=== PATIENT | male | born 1965 | race Two or more races ===

== ENCOUNTER → 2023-03-22 | Emergency (ER) | payer OTHER ==
[~2023-03-22] VITALS: Ht 170.2 cm; Wt 71.2 kg
[~2023-03-22] MED LIST: LEVOTHYROXINE25 MCG PO
== END | disposition home or self-care (01) ==
LOC: ER 14:32
DX: M79.644 Pain in right finger(s) (principal)

== ENCOUNTER 2023-04-03 12:47 | Outpatient (CLI) | payer OTHER | END 2023-04-03 12:52 | disposition home or self-care (01) | LOC: RAD 12:47 | PROVIDERS: ATTEND Orthopaedic Surgery | DX: S62.511A Displaced fracture of proximal phalanx of right thumb, initial encounter for closed fracture (principal) ==